=== PATIENT | male | born 1955 | race Caucasian/White ===

== ENCOUNTER 2018-09-01 09:10 | Emergency (ER) | payer BC ==
[2018-09-01] MEDS ORDERED: diphenhydrAMINE 50 MG/ML SDV IVPUSH ONE (09:15)
[2018-09-01] MEDS ORDERED: Dextrose 5%-0.9% NaCl 1,000 ML IV SCH (09:15)
[2018-09-01] MEDS ORDERED: Metoclopramide 10 MG/2 ML SDV IVPUSH ONE (09:15)
[2018-09-01] MEDS ORDERED: LORazepam 2 MG/ML SDV IVPUSH ONE (09:16)
--- NOTE | 2018-09-01 09:20 | EDM.PDOC ---
ED HPI GENERAL MEDICAL PROBLEM - General Chief Complaint: Neurological Problem Stated Complaint: [facility] Time Seen by Provider: 09/01/18 09:10 Source of Information: Reports: Patient, EMS History Limitations: Reports: No Limitations - History of Present Illness INITIAL COMMENTS - FREE TEXT/NARRATIVE: 62-year-old male presents the ED per [facility]. He states he awoke around 0600 hrs. this morning and appreciated marked vertigo symptoms upon getting up. He did get up during the night to void. He went to bed feeling fine. States he had a hang onto things to walk. He prefers to lie still with his eyes closed. Associated nausea without vomiting. The medics and given him Zofran 4 mg IV en route to [facility]. He admits that symptoms are improved if he holds still. They're worse with movement of his head particularly lying down or sitting up. He has had this once before about a year ago. No recent falls or closed head injuries. No headache at this time. Not on any blood thinners. No recent cough cold or flulike illness He states he has very bad tinnitus bilaterally. Appreciates that he is moving losing his hearing. He is not wearing hearing aids at this time afebrile. Heart rate is 68 and sinus. Onset: Today Onset Date: 09/01/18 Onset Time: 06:00 Duration: Hour(s): Location: Reports: Generalized (Severe vertigo with nausea) Quality: Reports: Other Severity: Severe (Severe vertigo 9 minute 10) Improves with: Reports: Rest (But still prefers to keep his eyes closed at rest. ) Context: Reports: Other (Spontaneous occurrence since awakening this morning at 0600 hrs.). Denies: Activity, Exercise, Lifting, Sick Contact, Trauma Associated Symptoms: Reports: Loss of Appetite, Nausea/Vomiting. 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 With severe tinnitus bilaterally.), Other (See Below) Social & Family History - Living Situation & Occupation Living situation: Reports: Occupation: Employed ED ROS GENERAL - Review of Systems Review Of Systems: See Below Constitutional: Denies: Fever, Chills, Weakness, Fatigue, Night Sweats, Diaphoresis, Decreased Appetite, Weight Loss HEENT: Reports: Glasses, Hearing Loss, Vertigo Respiratory: Reports: No Symptoms (1 bout about a year ago.) Cardiovascular: Reports: No Symptoms Endocrine: Reports: No Symptoms GI/Abdominal: Reports: Nausea (without vomiting) : Reports: Frequency Musculoskeletal: Reports: Joint Pain Skin: Reports: No Symptoms (Knees hips L-spine and neck at times) Neurological: Reports: Dizziness (At present severe vertigo with movement.) Psychiatric: Reports: No Symptoms Hematologic/Lymphatic: Reports: No Symptoms Immunologic: Reports: No Symptoms ED EXAM, DIZZINESS - Physical Exam Exam: See Below Exam Limited By: No Limitations General Appearance: Alert, WD/WN, Moderate Distress (Patient prefers to lie still at 60 elevation of the bed. Eyes close. However he can open his eyes to allow examination.) Eye Exam: Right Eye: Nystagmus (No sustained nystagmus), Bilateral Eye: Normal Inspection, PERRL Nystagmus: worsens with head to R, reproducible Ears: Normal External Exam, Normal Canal, Normal TMs Throat/Mouth: Normal Inspection, Normal Lips, Normal Teeth, Normal Gums, Normal Oropharynx, Normal Voice, No Airway Compromise, Other Head Exam: Atraumatic, Normocephalic. No: Facial Swelling Vertigo: worsens with head to R, reproducible, short duration Neck: Normal Inspection, Supple, Non-Tender, Full Range of Motion, Carotid Bruit. No: Lymphadenopathy (L), Lymphadenopathy (R) Respiratory/Chest: No Respiratory Distress, Lungs Clear, Normal Breath Sounds, No Accessory Muscle Use Cardiovascular: Normal Peripheral Pulses, Regular Rate, Rhythm, No Edema, No Gallop, No Murmur, No Rub GI/Abdominal: Normal Bowel Sounds, Soft, Non-Tender, No Organomegaly, No Abnormal Bruit, No Mass, Pelvis Stable, Other (No surgical scars ) Neurological: Alert, Normal Mood/Affect, Normal Dorsiflexion, CN II-XII Intact, Normal Plantar Flexion, Normal Reflexes, No Motor/Sensory Deficits, Oriented x 3 , Other (Normal heel to ozuna.). No: Normal Gait, Abnormal Finger to Nose, Abnormal Sensation, Abnormal Light Touch, Abnormal Motor, Abnormal Pin Prick, Babinski DTR: 0: Achilles (R), Achilles (L), 1+: Bicep (R), Bicep (L), Patella (R), Patella (L) Back Exam: Normal Inspection, Full Range of Motion. No: CVA Tenderness (L), CVA Tenderness (R) Extremities: Normal Inspection, Normal Range of Motion, Non-Tender, No Pedal Edema, Normal Capillary Refill Psychiatric: Normal Affect, Normal Mood Skin Exam: Warm, Dry, Intact, Normal Color, No Rash EKG INTERPRETATION EKG Date: 09/01/18 Time: 09:36 Rhythm: Other (Sinus bradycardia) Rate (Beats/Min): 52 Caliente: LAD-Left Caliente Deviation (Mild left axis deviation of -18) P-Wave: Enlarged (Left atrial hypertrophy pattern) QRS: Other (There is a near Q-wave in leads 3 and aVF. Consider possible old inferior wall myocardial infarction) ST-T: Other (T-wave flattening in lead 3 and aVF nonspecific finding) QT: Normal EKG Interpretation Comments: Abnormal ECG Course - Vital Signs Last Recorded V/S: Last Vital Signs Temp 36.4 C 09/01/18 09:12 Pulse 67 09/01/18 09:12 Resp 16 09/01/18 09:12 BP 161/87 H 09/01/18 09:12 Pulse Ox 100 09/01/18 09:12 - Orders/Labs/Meds Orders: Active Orders 24 hr Category Date Time Status EKG Documentation Completion [RC] STAT Care 09/01/18 09:16 Active URINALYSIS W/MICROSCOPIC [UA W/MICROSCOPIC] [URIN] Stat Lab 09/01/18 09:17 Ordered Dextrose 5%-0.9% NaCl [Dextrose 5%-Normal Saline] 1,000 Med 09/01/18 09:15 Active ml IV ASDIRECTED Medication Orders Dextrose/Sodium Chloride (Dextrose 5%-Normal Saline) 1,000 mls @ 150 mls/hr IV ASDIRECTED ELIEZER Last Admin: 09/01/18 09:25 Dose: 150 mls/hr Labs: Laboratory Tests 09/01/18 09/01/18 09/01/18 Range/Units 09:30 09:30 09:30 WBC 6.04 (4.23-9.07) K/mm3 RBC 5.62 (4.63-6.08) M/mm3 Hgb 16.9 (13.7-17.5) gm/L Hct 48.6 (40.1-51.0) % MCV 86.5 (79.0-92.2) fl MCH 30.1 (25.7-32.2) pg MCHC 34.8 (32.2-35.5) g/dl RDW Std Deviation 39.8 (35.1-43.9) fL Plt Count 197 (163-337) K/mm3 MPV 9.7 (9.4-12.3) fl Neutrophils % (Manual) 61 H (40-60) % Band Neutrophils % 0 (0-10) % Lymphocytes % (Manual) 28 (20-40) % Atypical Lymphs % 0 % Monocytes % (Manual) 9 (2-10) % Eosinophils % (Manual) 2 (0.8-7.0) % Basophils % (Manual) 0 L (0.2-1.2) Toxic Granulation 1+ slight Platelet Estimate Adequate RBC Morph Comment Normal Sodium 139 (136-145) mEq/L Potassium 4.2 (3.5-5.1) mEq/L Chloride 102 (98-107) mEq/L Carbon Dioxide 26 (21-32) mEq/L Anion Gap 15.2 H (5-15) BUN 13 (7-18) mg/dL Creatinine 0.9 (0.7-1.3) mg/dL Est Cr Clr Drug Dosing 82.33 mL/min Estimated GFR (MDRD) > 60 (>60) mL/min BUN/Creatinine Ratio 14.4 (14-18) Glucose 173 H (80-115) mg/dL Calcium 9.0 (8.5-10.1) mg/dL Magnesium 1.6 L (1.8-2.4) mg/dl Total Bilirubin 0.8 (0.2-1.0) mg/dL AST 18 (15-37) U/L ALT 29 (16-63) U/L Alkaline Phosphatase 67 (46-116) U/L C-Reactive Protein < 0.2 (<1.0) mg/dL Total Protein 7.8 (6.4-8.2) g/dl Albumin 4.5 (3.4-5.0) g/dl Globulin 3.3 gm/dL Albumin/Globulin Ratio 1.4 (1-2) TSH 3rd Generation 1.731 (0.358-3.74) uIU/mL Meds: Medications Generic Name Dose Route Start Last Admin Trade Name Freq PRN Reason Stop Dose Admin Dextrose/Sodium Chloride 1,000 mls @ 150 mls/hr 09/01/18 09:15 09/01/18 09:25 Dextrose 5%-Normal Saline IV 150 mls/hr ASDIRECTED ELIEZER Administration Discontinued Medications Generic Name Dose Route Start Last Admin Trade Name Freq PRN Reason Stop Dose Admin Diphenhydramine HCl 12.5 mg 09/01/18 09:15 09/01/18 09:27 Benadryl IVPUSH 09/01/18 09:16 12.5 mg ONETIME ONE Administration Lorazepam 0.5 mg 09/01/18 09:16 09/01/18 09:29 Ativan IVPUSH 09/01/18 09:17 0.5 mg ONETIME ONE Administration Metoclopramide HCl 10 mg 09/01/18 09:15 09/01/18 09:25 Reglan IVPUSH 09/01/18 09:16 10 mg ONETIME ONE Administration - Radiology Interpretation Free Text/Narrative:: 62-year-old male presents the ED per ambulance from [facility]. He awoke around 0600 hrs. this morning with severe vertigo which is improved at rest. He's had a similar bout about a year ago. He has decreased hearing bilaterally without need for hearing aids or use at this time. Has severe tinnitus bilaterally chronically. Can't appreciate if there is any worsening of his noise in his ears. No recent cough colds or flulike illnesses. No closed head injuries. CM reveals no sustained nystagmus until head is rotated to the right. The tympanic membranes are normal. Cranial nerves II-12 are intact. Motor power and tone are normal. No pronator drift. Normal finger to nose and heel to ozuna assessments. Negative Babinski. Appears to have peripheral benign positional vertigo. Paramedics have given him Zofran 4 mg IV en route to the hospital. I will give him Reglan 10 mg IV with Benadryl 12.5 mg IV to prevent any dystonic reaction from the Zofran and Reglan. He will also receive Ativan 0.5 mg IV. Routine labs will be obtained including serum magnesium and TSH. - Re-Assessments/Exams Free Text/Narrative Re-Assessment/Exam: 09/01/18 10:42 Labs reveal a normal white count at 6.04. 61% neutrophils and no band cells reported. Hemoglobin is slightly elevated at 16.9 with hematocrit of 48.6 suggesting a component of hemoconcentration. Platelet count is 197,000. Sodium 139 with a potassium of 4.2. Cord 102 bicarbonate 26. And a gap is 15.2. BUN is 13 with a creatinine of 0.9. GFR is greater than 60. Glucose is elevated at 173. Patient is a known type II diabetic .. Calcium is 9.0. Magnesium slightly low at 1.6. Liver function is normal C-reactive protein is less than 0.2. Total protein is 7.8 albumin fraction 4.5 TSH is 1.73. 09/01/18 10:55 he feels a little dopey from the medication. We did get him up for road testing and he did extremely well. Still feels slightly vertiginous . He is able to turn completely around without any severe vertigo symptoms. He will therefore be discharged home on Antivert 25 mg every 8 hours for the next 5 days to bring the vertigo attack under control. Departure - Departure Time of Disposition: 11:08 Disposition: Home, Self-Care 01 Condition: Fair Clinical Impression: Benign paroxysmal positional vertigo of left ear, Hypomagnesemia - Discharge Information *PRESCRIPTION DRUG MONITORING PROGRAM REVIEWED*: Not Applicable *COPY OF PRESCRIPTION DRUG MONITORING REPORT IN PATIENT JESSI: Not Applicable Prescriptions: Meclizine [Antivert] 25 mg PO DAILY #15 tab Instructions: Vertigo, [id number], Benign Positional Vertigo Referrals: PCP,None [Primary Care Provider] - Forms: ED Department Discharge Additional Instructions: Evaluation the emergency room this morning in regards to awakening with severe vertigo symptoms that made it impossible to walk without holding onto furniture and objects. Associated nausea without vomiting. Previous similar event about a year ago. He reports tinnitus in both ears for over the last year. This goes along with loss of hearing. The same nerve associate with hearing is associated with balance control. Neuro exam is completely normal with no signs of stroke. Treated with intravenous medications Reglan 10 mg and Benadryl 12.5 mg and Ativan 0.5 mg to bring the vertigo attack under control. Lab work revealed that you're mildly dehydrated. Should be improved with intravenous fluids given in the ED. Continue to take plenty of fluids today. The other abnormalities identified and lab work was a slightly low serum magnesium level at 1.6. Normal should be around 2.0. I have therefore written a prescription for a magnesium supplement called Slow-Mag leg which is to be taken once daily like a vitamin. It is important for heart health primarily. You're to take Antivert medication 25 mg every 8 hours for the next 5 days to bring current vertigo attack under control. First tablet would be due at 1500 hrs. or 3:00 today. Would be due about 11:00 tonight and 7:00 in the morning. Suggest follow-up with your personal care physician in 8 days time or sooner if condition worsens. Avoid high sodium foods as much as possible until he you are better. - My Orders Last 24 Hours: My Active Orders 09/01/18 09:15 Dextrose 5%-0.9% NaCl [Dextrose 5%-Normal Saline] 1,000 ml IV ASDIRECTED 09/01/18 09:16 EKG Documentation Completion [RC] STAT 09/01/18 09:17 URINALYSIS W/MICROSCOPIC [UA W/MICROSCOPIC] [URIN] Stat - Assessment/Plan Last 24 Hours: My Active Orders 09/01/18 09:15 Dextrose 5%-0.9% NaCl [Dextrose 5%-Normal Saline] 1,000 ml IV ASDIRECTED 09/01/18 09:16 EKG Documentation Completion [RC] STAT 09/01/18 09:17 URINALYSIS W/MICROSCOPIC [UA W/MICROSCOPIC] [URIN] Stat
== END 2018-09-01 11:30 | disposition home or self-care (01) ==
LOC: JD.ED 09:10
DX: H81.12 Benign paroxysmal vertigo, left ear (principal); E83.42 Hypomagnesemia; Z79.899 Other long term (current) drug therapy
CPT/HCPCS: 36415; 80053; 81001; 83735; 84443; 85007; 85027; 86140; 93005; 96361; 96374; 96375; 99284; J1200; J2060; J2765; J7042; 93010

== ENCOUNTER 2019-06-14 06:52 | Emergency (ER) | payer OTHER ==
[2019-06-14] MEDS ORDERED: LORazepam 2 MG/ML SDV IVPUSH ONE (07:23)
--- NOTE | 2019-06-14 07:28 | EDM.PDOC ---
ED HPI GENERAL MEDICAL PROBLEM - General Chief Complaint: Respiratory Problem Stated Complaint: [facility] Time Seen by Provider: 06/14/19 07:22 Source of Information: Reports: Patient, Family (spouse) History Limitations: Reports: No Limitations - History of Present Illness INITIAL COMMENTS - FREE TEXT/NARRATIVE: 63-year-old male presents to the ED with chief complaint of dyspnea. Patient states he has been ill with upper respiratory tract infection for the last week. He was seen through the clinic 3 days ago and started on combination of albuterol hand-held nebulizer and antibiotic Levaquin 500 mg once daily. He states he slept pretty well but after taking his albuterol neb this morning at about 0600 hrs. his heart started to race and he became acutely dyspneic. Feeling like he could not get his breath. He was also prescribed a course of prednisone 20 mg twice daily for 5 days. Of note he is a type II diabetic. Did not check his sugars this morning. He is still coughing paroxysmal . No fever or chills. Early O2 sats were found to be in the upper 70s at home however his hands were very cool to touch and therefore the pulse oximetry was felt to be inaccurate. Onset: Today, Sudden Onset Date: 06/14/19 Onset Time: 06:00 Duration: Hour(s): Location: Reports: Chest (Of your dyspnea and strong subjective sensation of inability to get a full deep breath. She with the development of an upper respiratory tract infection over the last 5 days with paroxysmal cough and low- grade fever.) Quality: Reports: Other Severity: Severe (Dyspnea) Improves with: Reports: Rest, Other (Improved with oxygen via nasal cannula at 6 L/min.) Worsens with: Reports: Rest, Movement. Denies: Immobilization Context: Reports: Other (Is in central chest painIncreased respiratory rate and dyspnea after using albuterol nebulizer this morning.). Denies: Activity, Exercise, Lifting, Sick Contact, Trauma Associated Symptoms: Reports: Chest Pain, Cough, cough w sputum, Fever/Chills, Loss of Appetite, Malaise, Shortness of Breath. Denies: Confusion, Diaphoresis , Headaches, Nausea/Vomiting, Rash, Seizure, Syncope, Weakness Treatments [employer]: Reports: Other (see below) - Related Data Allergies Allergy/AdvReac Type Severity Reaction Status Date / Time No Known Allergies Allergy Verified 06/14/19 08:07 Home Meds: Home Meds Albuterol Sulfate [Albuterol Sulfate Hfa] 2 inh INH DAILY 06/14/19 [History] Levofloxacin [Levaquin] 750 mg PO DAILY 06/14/19 [History] Lisinopril [Zestril] 10 mg PO DAILY 06/14/19 [History] Simvastatin 20 mg PO BEDTIME 06/14/19 [History] Past Medical History HEENT History: Reports: Hard of Hearing (Vertigo once in the past. With severe tinnitus bilaterally.), Other (See Below) Cardiovascular History: Reports: High Cholesterol, Hypertension Endocrine/Metabolic History: Reports: Diabetes, Type II Hematologic History: Reports: Other (See Below) (Previous history of DVT for no good reason in his left calf. About 3 years ago) Social & Family History - Caffeine Use Caffeine Use: Reports: None - Living Situation & Occupation Living situation: Reports: Occupation: Employed ED ROS GENERAL - Review of Systems Review Of Systems: See Below Constitutional: Reports: Fever, Malaise, Weakness, Fatigue, Decreased Appetite. Denies: Chills (3 days ago but nothing since.), Weight Loss HEENT: Reports: Glasses, Throat Pain. Denies: Ear Pain Respiratory: Reports: Shortness of Breath, Cough, Sputum. Denies: Pleuritic Chest Pain, Hemoptysis Cardiovascular: Reports: Blood Pressure Problem, Dyspnea on Exertion, Lightheadedness. Denies: No Symptoms, Chest Pain, Claudication, Edema, Orthopnea Endocrine: Reports: Fatigue GI/Abdominal: Reports: Decreased Appetite : Reports: No Symptoms Musculoskeletal: Reports: No Symptoms Skin: Reports: No Symptoms Neurological: Reports: No Symptoms Psychiatric: Reports: No Symptoms Hematologic/Lymphatic: Reports: No Symptoms Immunologic: Reports: No Symptoms ED EXAM, GENERAL - Physical Exam Exam: See Below Exam Limited By: No Limitations General Appearance: Alert, WD/WN, Moderate Distress, Severe Distress, Other ( Very tachypneic at rest.) Eye Exam: Bilateral Eye: Normal Inspection, PERRL Ears: Normal TMs Throat/Mouth: Normal Inspection, Normal Lips, Normal Teeth, Normal Oropharynx Head: Atraumatic, Normocephalic Neck: Normal Inspection, Supple, Non-Tender, Full Range of Motion. No: Carotid Bruit, Lymphadenopathy (L), Lymphadenopathy (R) Respiratory/Chest: No Accessory Muscle Use, Chest Non-Tender, Respiratory Distress (Tachypnea.), Rales (Rales both lower lung tena.), Wheezing. No: Rhonchi (Patient expiratory wheeze.), Stridor, Pleural Rub, Accessory Muscle Use , Retractions Cardiovascular: Normal Peripheral Pulses, Regular Rate, Rhythm, No Edema, No Gallop, No Murmur, No Rub Peripheral Pulses: 3+: Posterior Tibial (L), Posterior Tibial (R), Dorsalis Pedis (L), Dorsalis Pedis (R) GI/Abdominal: Normal Bowel Sounds, Soft, Non-Tender, No Organomegaly, No Abnormal Bruit, No Mass, Pelvis Stable Back Exam: Normal Inspection, Full Range of Motion. No: CVA Tenderness (L), CVA Tenderness (R) Extremities: Normal Inspection, Normal Range of Motion, No Pedal Edema Neurological: Alert, Oriented, CN II-XII Intact, Normal Cognition Psychiatric: Normal Affect, Normal Mood Skin Exam: Warm, Dry, Intact, Normal Color, No Rash EKG INTERPRETATION EKG Date: 06/14/19 Time: 07:31 Rhythm: Other (Sinus tachycardia) Rate (Beats/Min): 128 [place]: Normal P-Wave: Present QRS: Other (R wave transition particular noted in V2 consider right ventricular hypertrophy pattern versus septal hypertrophy pattern.) ST-T: Other (T wave flattening in aVF only nonspecific finding) QT: Prolonged (QTC is moderately prolonged) Course - Vital Signs Last Recorded V/S: Last Vital Signs Temp 36.6 C 06/14/19 10:30 Pulse 113 H 06/14/19 10:30 Resp 28 H 06/14/19 10:30 BP 100/71 06/14/19 10:30 Pulse Ox 98 06/14/19 10:30 - Orders/Labs/Meds Orders: Active Orders 24 hr Category Date Time Status EKG Documentation Completion [RC] STAT Care 06/14/19 07:24 Active Oxygen Therapy [RC] ASDIRECTED Care 06/14/19 07:25 Active Chest 1V Frontal [CR] Stat Exams 06/14/19 07:24 Taken Chest PE [Ang Chest] [CT] Stat Exams 06/14/19 08:07 Taken Head wo Cont [CT] Stat Exams 06/14/19 10:07 Taken ANTICARDIOLIPIN AB, IGM, QN [REF] Stat Lab 06/14/19 09:00 Ordered ANTITHROMBIN ANTIGEN [REF] Stat Lab 06/14/19 09:00 Ordered CORONAVIRUS (COVID-19) PCR [MREF] Stat Lab 06/14/19 08:10 Received CULTURE BLOOD [BC] Stat Lab 06/14/19 08:00 Received CULTURE BLOOD [BC] Stat Lab 06/14/19 08:12 Received LACTIC ACID [CHEM] Stat Lab 06/14/19 10:44 Ordered PROTEIN C-FUNCTIONAL [REF] Stat Lab 06/14/19 09:00 Ordered PROTEIN S-FUNCTIONAL [REF] Stat Lab 06/14/19 09:00 Ordered VON WILLEBRAND PROFILE [REF] Stat Lab 06/14/19 09:02 Ordered Sodium Chloride 0.9% [Normal Saline] 1,000 ml Med 06/14/19 07:30 Active IV ASDIRECTED Sodium Chloride 0.9% [Normal Saline] 1,000 ml Med 06/14/19 10:00 Active IV ASDIRECTED Sodium Chloride 0.9% [Normal Saline] 100 ml Med 06/14/19 08:45 Active IV ASDIRECTED Blood Culture x2 Reflex Set [OM.PC] Stat Oth 06/14/19 07:37 Ordered Isolation [COMM] Routine Oth 06/14/19 07:32 Ordered Medication Orders Sodium Chloride (Normal Saline) 1,000 mls @ 500 mls/hr IV ASDIRECTED ELIEZER Last Admin: 06/14/19 08:03 Dose: 500 mls/hr Sodium Chloride (Normal Saline) 100 mls @ 60 mls/hr IV ASDIRECTED ELIEZER Last Admin: 06/14/19 09:10 Dose: 60 mls/hr Sodium Chloride (Normal Saline) 1,000 mls @ 500 mls/hr IV ASDIRECTED ELIEZER Last Admin: 06/14/19 10:00 Dose: 500 mls/hr Labs: Laboratory Tests 06/14/19 06/14/19 06/14/19 Range/Units 07:05 07:05 07:05 WBC 12.38 H (4.23-9.07) K/mm3 RBC 5.39 (4.63-6.08) M/mm3 Hgb 16.0 (13.7-17.5) gm/dl Hct 47.4 (40.1-51.0) % MCV 87.9 (79.0-92.2) fl MCH 29.7 (25.7-32.2) pg MCHC 33.8 (32.2-35.5) g/dl RDW Std Deviation 40.4 (35.1-43.9) fL Plt Count 425 H D (163-337) K/mm3 MPV 9.8 (9.4-12.3) fl Neut % (Auto) 69.9 H (34.0-67.9) % Lymph % (Auto) 22.4 (21.8-53.1) % Cole % (Auto) 6.5 (5.3-12.2) % Eos % (Auto) 0.3 L (0.8-7.0) Baso % (Auto) 0.2 (0.1-1.2) % Neut # (Auto) 8.65 H (1.78-5.38) K/mm3 Lymph # (Auto) 2.77 (1.32-3.57) K/mm3 Cole # (Auto) 0.80 (0.30-0.82) K/mm3 Eos # (Auto) 0.04 (0.04-0.54) K/mm3 Baso # (Auto) 0.03 (0.01-0.08) K/mm3 Manual Slide Review Abnormal smear PT 12.7 H (9.7-12.0) SECONDS INR 1.18 APTT (22-31) SECONDS D-Dimer, Quantitative (0.19-0.50) mg/L Puncture Site ABG pH (7.35-7.45) ABG pCO2 (35.0-45.0) mmHg ABG pO2 (80.0-100.0) mmHg ABG HCO3 (22.0-26.0) meq/L ABG O2 Saturation (96.0-97.0) % ABG Base Excess (-2-2.0) Jonatan Test A-a Gradient mmHg O2 Delivery Device Oxygen Flow Rate FiO2 (21.00-100.00) % Sodium 138 (136-145) mEq/L Potassium 4.1 (3.5-5.1) mEq/L Chloride 97 L (98-107) mEq/L Carbon Dioxide 22 (21-32) mEq/L Anion Gap 23.1 H (5-15) BUN 15 (7-18) mg/dL Creatinine 1.3 (0.7-1.3) mg/dL Est Cr Clr Drug Dosing TNP Estimated GFR (MDRD) 56 (>60) mL/min BUN/Creatinine Ratio 11.5 L (14-18) Glucose 404 H (80-115) mg/dL Lactic Acid (0.4-2.0) mmol/L Calcium 10.1 (8.5-10.1) mg/dL Magnesium 2.0 (1.8-2.4) mg/dl Total Bilirubin 0.7 (0.2-1.0) mg/dL AST 32 (15-37) U/L ALT 50 (16-63) U/L Alkaline Phosphatase 89 (46-116) U/L Lactate Dehydrogenase (85-227) U/L Troponin I < 0.017 (0.00-0.056) ng/mL C-Reactive Protein 9.2 H* (<1.0) mg/dL NT-Pro-B Natriuret Pep (0-125) pg/mL Total Protein 8.9 H (6.4-8.2) g/dl Albumin 3.5 (3.4-5.0) g/dl Globulin 5.4 gm/dL Albumin/Globulin Ratio 0.7 L (1-2) 06/14/19 06/14/19 06/14/19 Range/Units 07:05 07:05 07:05 WBC (4.23-9.07) K/mm3 RBC (4.63-6.08) M/mm3 Hgb (13.7-17.5) gm/dl Hct (40.1-51.0) % MCV (79.0-92.2) fl MCH (25.7-32.2) pg MCHC (32.2-35.5) g/dl RDW Std Deviation (35.1-43.9) fL Plt Count (163-337) K/mm3 MPV (9.4-12.3) fl Neut % (Auto) (34.0-67.9) % Lymph % (Auto) (21.8-53.1) % Cole % (Auto) (5.3-12.2) % Eos % (Auto) (0.8-7.0) Baso % (Auto) (0.1-1.2) % Neut # (Auto) (1.78-5.38) K/mm3 Lymph # (Auto) (1.32-3.57) K/mm3 Cole # (Auto) (0.30-0.82) K/mm3 Eos # (Auto) (0.04-0.54) K/mm3 Baso # (Auto) (0.01-0.08) K/mm3 Manual Slide Review PT (9.7-12.0) SECONDS INR APTT (22-31) SECONDS D-Dimer, Quantitative 15.85 H (0.19-0.50) mg/L Puncture Site ABG pH (7.35-7.45) ABG pCO2 (35.0-45.0) mmHg ABG pO2 (80.0-100.0) mmHg ABG HCO3 (22.0-26.0) meq/L ABG O2 Saturation (96.0-97.0) % ABG Base Excess (-2-2.0) Jonatan Test A-a Gradient mmHg O2 Delivery Device Oxygen Flow Rate FiO2 (21.00-100.00) % Sodium (136-145) mEq/L Potassium (3.5-5.1) mEq/L Chloride (98-107) mEq/L Carbon Dioxide (21-32) mEq/L Anion Gap (5-15) BUN (7-18) mg/dL Creatinine (0.7-1.3) mg/dL Est Cr Clr Drug Dosing Estimated GFR (MDRD) (>60) mL/min BUN/Creatinine Ratio (14-18) Glucose (80-115) mg/dL Lactic Acid 2.5 H* (0.4-2.0) mmol/L Calcium (8.5-10.1) mg/dL Magnesium (1.8-2.4) mg/dl Total Bilirubin (0.2-1.0) mg/dL AST (15-37) U/L ALT (16-63) U/L Alkaline Phosphatase (46-116) U/L Lactate Dehydrogenase (85-227) U/L Troponin I (0.00-0.056) ng/mL C-Reactive Protein (<1.0) mg/dL NT-Pro-B Natriuret Pep 96 (0-125) pg/mL Total Protein (6.4-8.2) g/dl Albumin (3.4-5.0) g/dl Globulin gm/dL Albumin/Globulin Ratio (1-2) 06/14/19 06/14/19 06/14/19 Range/Units 07:05 07:05 07:42 WBC (4.23-9.07) K/mm3 RBC (4.63-6.08) M/mm3 Hgb (13.7-17.5) gm/dl Hct (40.1-51.0) % MCV (79.0-92.2) fl MCH (25.7-32.2) pg MCHC (32.2-35.5) g/dl RDW Std Deviation (35.1-43.9) fL Plt Count (163-337) K/mm3 MPV (9.4-12.3) fl Neut % (Auto) (34.0-67.9) % Lymph % (Auto) (21.8-53.1) % Cole % (Auto) (5.3-12.2) % Eos % (Auto) (0.8-7.0) Baso % (Auto) (0.1-1.2) % Neut # (Auto) (1.78-5.38) K/mm3 Lymph # (Auto) (1.32-3.57) K/mm3 Cole # (Auto) (0.30-0.82) K/mm3 Eos # (Auto) (0.04-0.54) K/mm3 Baso # (Auto) (0.01-0.08) K/mm3 Manual Slide Review PT (9.7-12.0) SECONDS INR APTT 32 H (22-31) SECONDS D-Dimer, Quantitative (0.19-0.50) mg/L Puncture Site Lt radial ABG pH 7.38 (7.35-7.45) ABG pCO2 29.9 L (35.0-45.0) mmHg ABG pO2 99.0 (80.0-100.0) mmHg ABG HCO3 17.4 L (22.0-26.0) meq/L ABG O2 Saturation 96.0 (96.0-97.0) % ABG Base Excess -6.0 L (-2-2.0) Jonatan Test Positive A-a Gradient 435 mmHg O2 Delivery Device Nonrebreather Oxygen Flow Rate 15.0 FiO2 80.00 (21.00-100.00) % Sodium (136-145) mEq/L Potassium (3.5-5.1) mEq/L Chloride (98-107) mEq/L Carbon Dioxide (21-32) mEq/L Anion Gap (5-15) BUN (7-18) mg/dL Creatinine (0.7-1.3) mg/dL Est Cr Clr Drug Dosing Estimated GFR (MDRD) (>60) mL/min BUN/Creatinine Ratio (14-18) Glucose (80-115) mg/dL Lactic Acid (0.4-2.0) mmol/L Calcium (8.5-10.1) mg/dL Magnesium (1.8-2.4) mg/dl Total Bilirubin (0.2-1.0) mg/dL AST (15-37) U/L ALT (16-63) U/L Alkaline Phosphatase (46-116) U/L Lactate Dehydrogenase 431 H (85-227) U/L Troponin I (0.00-0.056) ng/mL C-Reactive Protein (<1.0) mg/dL NT-Pro-B Natriuret Pep (0-125) pg/mL Total Protein (6.4-8.2) g/dl Albumin (3.4-5.0) g/dl Globulin gm/dL Albumin/Globulin Ratio (1-2) Meds: Medications Generic Name Dose Route Start Last Admin Trade Name Freq PRN Reason Stop Dose Admin Sodium Chloride 1,000 mls @ 500 mls/hr 06/14/19 07:30 06/14/19 08:03 Normal Saline IV 500 mls/hr ASDIRECTED ELIEZER Administration Sodium Chloride 100 mls @ 60 mls/hr 06/14/19 08:45 06/14/19 09:10 Normal Saline IV 60 mls/hr ASDIRECTED ELIEZER Administration Sodium Chloride 1,000 mls @ 500 mls/hr 06/14/19 10:00 06/14/19 10:00 Normal Saline IV 500 mls/hr ASDIRECTED ELIEZER Administration Discontinued Medications Generic Name Dose Route Start Last Admin Trade Name Freq PRN Reason Stop Dose Admin Alteplase, Recombinant Confirm 06/14/19 09:38 06/14/19 09:43 Activase Administered 06/14/19 09:39 Not Given Dose 100 mg .ROUTE .STK-MED ONE Alteplase, Recombinant 100 mg 06/14/19 09:40 06/14/19 09:54 Activase IVPUSH 06/14/19 09:41 100 mg ONETIME ONE Administration Iopamidol 100 ml 06/14/19 08:36 06/14/19 09:10 Isovue-370 (76%) IVPUSH 06/14/19 08:37 100 ml ONETIME ONE Administration Lorazepam 1 mg 06/14/19 07:23 06/14/19 08:03 Ativan IVPUSH 06/14/19 07:24 1 mg ONETIME ONE Administration Rivaroxaban 15 mg 06/14/19 08:59 06/14/19 10:11 Xarelto PO 06/14/19 09:00 Not Given ONETIME ONE Sodium Chloride 10 ml 06/14/19 08:36 06/14/19 09:10 Saline Flush FLUSH 06/14/19 08:37 10 ml ONETIME ONE Administration - Radiology Interpretation Free Text/Narrative:: 63-year-old male presents to the ED per [facility] due to acute shortness of breath with tachycardia. Heart rate is up in the 130s. This seemed to start after taking albuterol metered-dose inhaler dose 2 puffs at around 0600 hrs. this morning. He has been ill for about 5 days with upper respiratory tract infection harsh paroxysmal cough productive at times. Low- grade fever initially but not since. He was placed on a short course of prednisone, 5 to 10-day course of Levaquin 500 mg daily and a metered-dose inhaler of albuterol. I presentation he is in sinus tachycardia in the 136 areas. Very anxious. He does however have crackles in both basal lung of the lungs not known to have any congestive heart failure issues. Plan septic work- up will be completed. Repeat ECG repeat chest x-ray repeat influenza screen and I will screen him for cold bed 19 as well. He was to be getting worse instead of better. - Re-Assessments/Exams Free Text/Narrative Re-Assessment/Exam: 06/14/19 08:01 ABGs reveal a normal pH of 7.38. PCO2 of 29.9 PO2 of 99 O2 sats 96% this was on a nonrebreather at 15 L. Is delivering 80% oxygen. He was placed on 3 L/min at my orders but his sats fell to around 89--90%. O2 sats will be increased to 4 to 5 L per nasal cannula since he is not a retainer. He remains tachycardic at 139/min with a BP of 107/72. Therefore he may well have a pulmonary embolism. This report to me now that he was never changed to a cannula. He remains on a nonrebreather at 15 L/min. O2 sats are 97% we will proceed with CT pulmonary angiogram screen. 06/14/19 08:23 Hematology reveals a slightly elevated white count of 12.38. The differential shows 70% neutrophils. Hemoglobin is 16.0 with hematocrit of 47.4. 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 Sodium 138 with a potassium of 4.1 chloride 97 with a bicarb of 22. Anion gap is elevated at 23.1. BUN is 15 with a creatinine of 1.3. Glucose is 404 calcium is 10.1 magnesium is 2.0. Liver function is normal troponin I is less than 0.017. C- reactive protein is elevated at 9.2 BNP is 96 total protein is 8.9 albumin fraction is 3.5 06/14/19 08:56 D-dimer has returned markedly elevated at 15.85. PT is 12.7 with an INR of 1.18 PTT is 32. Kos is markedly elevated at 404 lactic acid elevated at 2.5 C-reactive protein elevated at 9.2 influenza screen was negative. 06/14/19 08:57 pulmonary angiogram reveals bilateral multiple pulmonary emboli. Evidence of significant right ventricular strain with deviation of the right septum into the ventricle suggesting severe strain. It is considered as near close to the saddle pulmonary embolism as there is. Patient will be started immediately on Xarelto 15mg po which should be given twice daily for the first 21 days and then converted to 20 mg once daily. After I had discussed starting him on Eliquis his blood pressures slipped down into the 80s 81/57. His IV normal saline was bolused upwards but he now becomes a candidate for thrombolytic therapy. I will speak with physicians in [facility]. He did speak with Dr. Gaffney from the department of interventional radiology and he agrees that he is a candidate for thrombectomy. Will proceed with thrombolytics giving him alteplase 100 mg IV over 2 hours. Plan will be to tentatively transport him per helicopter service. 06/14/19 10:14 blood pressure did seem to respond to 500 mill normal saline bolus and is currently 111/70. He is currently 15 to 20 minutes in to his alteplase IV infusion. He is to receive 50 mg/h x 2 hours. I have spoke with Dr. Gaffney and I believe Dr. Clements at [facility] in [place] and both excepted care of this patient. Dr. Gaffney is from the interventional radiology unit and the plan will be to have the patient sent to the emergency room and ideally taken directly to the [facility] for thrombectomy from the pulmonary arteries. We have identified that the helicopter cannot fly for a variety of reasons. Patient will therefore be transported by ground ambulance as this will be faster. 06/14/19 11:06 CT of the brain has been carried out with overlying contrast residual in the brain from pulmonary angiogram that was just carried out. The radiologist reports no acute intracranial hemorrhage. There is mild diffuse heterogeneity of the white matter attenuation consistent with chronic white matter ischemic change. Mild cerebral atrophy. Ventricles appear to be normal with no ventriculomegaly. Visualized sinuses unremarkable with no fluid levels. Visualized mastoid air cells are well aerated soft tissues are unremarkable vasculature filling defect in the basilar artery series 2 image 7 could represent thromboembolic disease versus artifact. He had the scan sent by PACS to [facility] in [place]. Departure - Departure Time of Disposition: 11:00 Disposition: DC/Tfer to Acute Hospital 02 Condition: Serious Clinical Impression: Pulmonary embolism with acute cor pulmonale Qualifiers: Pulmonary embolism type: saddle Chronicity: acute Qualified Code(s): I26.02 - Saddle embolus of pulmonary artery with acute cor pulmonale - Discharge Information *PRESCRIPTION DRUG MONITORING PROGRAM REVIEWED*: Not Applicable *COPY OF PRESCRIPTION DRUG MONITORING REPORT IN PATIENT JESSI: Not Applicable Instructions: Pulmonary Embolism Referrals: Oleg Jarquin MD [Primary Care Provider] - Forms: ED Department Discharge Additional Instructions: Patient will be transported to [facility] in [place] primarily under the care of interventional radiology to see if they can intervene and remove a good portion of the clot load from his pulmonary arteries bilaterally. Sepsis Event Note - Focused Exam Vital Signs: Vital Signs Temp Pulse Resp BP Pulse Ox 06/14/19 10:30 36.6 C 113 H 28 H 100/71 98 06/14/19 10:00 118 H 34 H 98/74 98 06/14/19 08:04 36.4 C 135 H 32 H 107/72 93 L Date Exam was Performed: 06/14/19 Time Exam was Performed: 11:06 - My Orders Last 24 Hours: My Active Orders 06/14/19 07:24 EKG Documentation Completion [RC] STAT Chest 1V Frontal [CR] Stat 06/14/19 07:25 Oxygen Therapy [RC] ASDIRECTED 06/14/19 07:30 Sodium Chloride 0.9% [Normal Saline] 1,000 ml IV ASDIRECTED 06/14/19 07:32 Isolation [COMM] Routine 06/14/19 07:37 Blood Culture x2 Reflex Set [OM.PC] Stat 06/14/19 08:00 CULTURE BLOOD [BC] Stat 06/14/19 08:07 Chest PE [Ang Chest] [CT] Stat 06/14/19 08:10 CORONAVIRUS (COVID-19) PCR [MREF] Stat 06/14/19 08:12 CULTURE BLOOD [BC] Stat 06/14/19 08:45 Sodium Chloride 0.9% [Normal Saline] 100 ml IV ASDIRECTED 06/14/19 09:00 ANTICARDIOLIPIN AB, IGM, QN [REF] Stat ANTITHROMBIN ANTIGEN [REF] Stat PROTEIN C-FUNCTIONAL [REF] Stat PROTEIN S-FUNCTIONAL [REF] Stat 06/14/19 09:02 VON WILLEBRAND PROFILE [REF] Stat 06/14/19 10:00 Sodium Chloride 0.9% [Normal Saline] 1,000 ml IV ASDIRECTED 06/14/19 10:07 Head wo Cont [CT] Stat 06/14/19 10:44 LACTIC ACID [CHEM] Stat - Assessment/Plan Last 24 Hours: My Active Orders 06/14/19 07:24 EKG Documentation Completion [RC] STAT Chest 1V Frontal [CR] Stat 06/14/19 07:25 Oxygen Therapy [RC] ASDIRECTED 06/14/19 07:30 Sodium Chloride 0.9% [Normal Saline] 1,000 ml IV ASDIRECTED 06/14/19 07:32 Isolation [COMM] Routine 06/14/19 07:37 Blood Culture x2 Reflex Set [OM.PC] Stat 06/14/19 08:00 CULTURE BLOOD [BC] Stat 06/14/19 08:07 Chest PE [Ang Chest] [CT] Stat 06/14/19 08:10 CORONAVIRUS (COVID-19) PCR [MREF] Stat 06/14/19 08:12 CULTURE BLOOD [BC] Stat 06/14/19 08:45 Sodium Chloride 0.9% [Normal Saline] 100 ml IV ASDIRECTED 06/14/19 09:00 ANTICARDIOLIPIN AB, IGM, QN [REF] Stat ANTITHROMBIN ANTIGEN [REF] Stat PROTEIN C-FUNCTIONAL [REF] Stat PROTEIN S-FUNCTIONAL [REF] Stat 06/14/19 09:02 VON WILLEBRAND PROFILE [REF] Stat 06/14/19 10:00 Sodium Chloride 0.9% [Normal Saline] 1,000 ml IV ASDIRECTED 06/14/19 10:07 Head wo Cont [CT] Stat 06/14/19 10:44 LACTIC ACID [CHEM] Stat
[2019-06-14] MEDS ORDERED: Sodium Chloride 0.9% 1,000 ML IV SCH ×2 (07:30→10:00)
[2019-06-14] MEDS ORDERED: Iopamidol 755 Mg/ML 100 ML Bottle IVPUSH ONE (08:36)
[2019-06-14] MEDS ORDERED: Sodium Chloride 0.9% 10 ML Syringe FLUSH ONE (08:36)
[2019-06-14] MEDS ORDERED: Sodium Chloride 0.9% 100 ML IV SCH (08:45)
[2019-06-14] MEDS ORDERED: Rivaroxaban 15 MG Tab PO ONE (08:59)
--- NOTE | 2019-06-16 07:42 | CR ---
Chest: Portable view of the chest was obtained. Comparison: No prior chest x-rays available. Heart size and mediastinum are normal. Lungs show no acute parenchymal change. Bony structures are grossly intact. Impression: 1. Nothing acute is appreciated on portable chest x-ray. Diagnostic code #1 This report was dictated in MDT
--- NOTE | 2019-06-16 07:43 | CT ---
Head CT Technique: Multiple axial sections through the brain were obtained. Intravenous contrast was not utilized. Comparison: No prior intracranial imaging is available. Findings: Ventricles along with basal cisterns and sulci over the convexities are within normal limits for the patient's age. Distal basilar artery shows a minimal low density area. No abnormal parenchymal densities are seen. No evidence of intracranial hemorrhage. No midline shift or mass-effect is seen. Bone window settings were reviewed. Visualized mastoid sinuses and paranasal sinuses show nothing acute. No acute calvarial abnormality is appreciated. Impression: 1. Low density within the distal basilar artery most likely artifact. MR angiogram study could be considered to completely exclude plaque. 2. No acute intracranial abnormality is identified. Diagnostic code #2 This report was dictated in MDT I agree with preliminary report from [facility], finalized on 06/14/19, 11:57 AM Central Time
--- NOTE | 2019-06-16 07:43 | CT ---
CT chest Technique: Multiple axial sections were obtained from above the lung apices inferiorly through the lung bases. Intravenous contrast was utilized. Study has been performed as a pulmonary angiogram protocol. Comparison: Prior chest x-ray performed earlier on the same day (8:16 AM). Findings: Filling defects compatible with thrombus are seen within the distal right and left main pulmonary arteries extending into the upper and lower lobe segmental pulmonary arteries. Additional subsegmental thrombus is seen within both lower lobe pulmonary arteries. Visualized upper abdominal structures shows nothing acute. Cyst is noted within the right kidney measuring 2.8 cm. No pericardial thickening is seen. Coronary artery calcification is noted. Atherosclerotic calcification is seen within the thoracic aorta. Thoracic aorta shows no aneurysm. Small mediastinal lymph nodes are seen which are believed to be within normal limits. Minimal bowing of the intraventricular septum is seen possibly due to early right heart strain. Bone window settings were reviewed. Mild scattered degenerative change within the spine. No acute osseous finding is seen. Impression: 1. Extensive pulmonary emboli as noted above. This is noted on both sides of the chest. Possible early right heart strain. 2. Other findings which are believed to be nonacute. Diagnostic code #5 This report was dictated in MDT I agree with preliminary report from [facility], finalized on 06/14/19, 10:18 AM Central Time
== END 2019-06-14 10:50 ==
LOC: JD.ED 06:52
DX: I26.02 Saddle embolus of pulmonary artery with acute cor pulmonale (principal); I10 Essential (primary) hypertension; E11.9 Type 2 diabetes mellitus without complications; E78.00 Pure hypercholesterolemia, unspecified; R00.0 Tachycardia, unspecified; Z79.899 Other long term (current) drug therapy
CPT/HCPCS: 36415; 36600; 70450; 71045; 71275; 80053; 82803; 83605; 83615; 83735; 83880; 84484; 85025; 85240; 85245; 85246; 85301; 85303; 85306; 85379; 85610; 85730; 86140; 86147; 87040; 87635; 87804; 93005; 96361; 96365; 96375; 99285; J2060; J2997; J7030; J7050; Q9967; 93010; U0001; U0002

== ENCOUNTER 2020-04-03 12:59 | Emergency (ER) | payer OTHER ==
--- NOTE | 2020-04-03 14:57 | EDM.PDOC ---
ED HPI GENERAL MEDICAL PROBLEM - General Chief Complaint: Lower Extremity Injury/Pain Stated Complaint: LT LEG PAIN HX OF DVT Time Seen by Provider: 04/03/20 13:16 Source of Information: Reports: Patient, RN Notes Reviewed History Limitations: Reports: No Limitations - History of Present Illness INITIAL COMMENTS - FREE TEXT/NARRATIVE: Patient is a 64-year-old male presenting to the emergency department with complaints of pain and intermittent cramping to the calf and Knee of the left lower extremity. Symptoms have been occurring for the last few days. Patient is concerned that he could possibly have a DVT as he does have a history of DVTs. He is currently on Xarelto and states since he was on this blood thinner, he has not had any blood clots. Denies any known injury to the area. Denies chest pain or shortness of breath. Left Middle Leg Pain Score (Numeric/FACES): 5 - Related Data Allergies Allergy/AdvReac Type Severity Reaction Status Date / Time No Known Allergies Allergy Verified 04/03/20 13:22 Home Meds: Home Meds Simvastatin 20 mg PO BEDTIME 06/14/19 [History] metFORMIN [Glucophage XR] 500 mg PO DAILY 06/14/19 [History] Dulaglutide [Trulicity] 1.5 mg SQ WE 04/03/20 [History] Glimepiride 4 mg PO DAILY 04/03/20 [History] Rivaroxaban [Xarelto] 15 mg PO DAILY 04/03/20 [History] lisinopriL [Lisinopril] 2.5 mg PO DAILY 04/03/20 [History] Past Medical History HEENT History: Reports: Hard of Hearing, Impaired Vision Other HEENT History: wears eyeglasses Cardiovascular History: Reports: High Cholesterol, Hypertension Respiratory History: Reports: Bronchitis, Recurrent, PE, Pneumonia, Recurrent Musculoskeletal History: Reports: Fracture Neurological History: Reports: Migraines Psychiatric History: Reports: Addiction Other Psychiatric History: tobacco Endocrine/Metabolic History: Reports: Diabetes, Type II Hematologic History: Reports: Other (See Below) Other Hematologic History: had clotting studies with no etiology. - Past Surgical History Musculoskeletal Surgical History: Reports: Other (See Below) Other Musculoskeletal Surgeries/Procedures:: ingrown toenails. Social & Family History - Tobacco Use Tobacco Use Status *Q: Former Tobacco User Years of Tobacco use: 12 Packs/Tins Daily: 1 Used Tobacco, but Quit: Yes Month/Year Tobacco Last Used: 03/1981 - Caffeine Use Caffeine Use: Reports: Coffee, Tea - Alcohol Use Days Per Week of Alcohol Use: 7 Number of Drinks Per Day: 2 Total Drinks Per Week: 14 - Recreational Drug Use Recreational Drug Use: No - Living Situation & Occupation Living situation: Reports: Occupation: Employed Review of Systems - Review of Systems Review Of Systems: See Below Constitutional: Reports: No Symptoms. Denies: Chills, Fever, Weakness Eyes: Reports: No Symptoms Ears: Reports: No Symptoms Nose: Reports: No Symptoms Mouth/Throat: Reports: No Symptoms Respiratory: Reports: No Symptoms Cardiovascular: Reports: No Symptoms GI/Abdominal: Reports: No Symptoms Genitourinary: Reports: No Symptoms Musculoskeletal: Reports: Other (Left calf and knee pain) ED EXAM, GENERAL - Physical Exam Exam: See Below Exam Limited By: No Limitations General Appearance: Alert, WD/WN, No Apparent Distress Respiratory/Chest: No Respiratory Distress, Lungs Clear, Normal Breath Sounds, No Accessory Muscle Use, Chest Non-Tender Cardiovascular: Normal Peripheral Pulses, Regular Rate, Rhythm, No Edema, No Gallop, No JVD, No Murmur, No Rub Extremities: Other (Mild tenderness to the left popliteal fossa and proximal left calf. No redness, warmth, or swelling.) Neurological: Alert, Oriented, CN II-XII Intact, Normal Cognition, Normal Gait, Normal Reflexes, No Motor/Sensory Deficits Psychiatric: Normal Affect, Normal Mood Skin Exam: Warm, Dry, Intact, Normal Color, No Rash Course - Vital Signs Last Recorded V/S: Last Vital Signs Temp 97.0 F 04/03/20 13:15 Pulse 78 04/03/20 13:15 Resp 16 04/03/20 13:15 BP 141/76 H 04/03/20 13:15 Pulse Ox 96 04/03/20 13:15 - Orders/Labs/Meds Labs: Laboratory Tests 04/03/20 04/03/20 04/03/20 Range/Units 14:29 14:29 14:29 WBC 6.22 (4.23-9.07) K/mm3 RBC 5.00 (4.63-6.08) M/mm3 Hgb 15.2 (13.7-17.5) gm/dl Hct 44.1 (40.1-51.0) % MCV 88.2 (79.0-92.2) fl MCH 30.4 (25.7-32.2) pg MCHC 34.5 (32.2-35.5) g/dl RDW Std Deviation 40.9 (35.1-43.9) fL Plt Count 203 D (163-337) K/mm3 MPV 9.4 (9.4-12.3) fl Neut % (Auto) 63.0 (34.0-67.9) % Lymph % (Auto) 25.9 (21.8-53.1) % Graham % (Auto) 8.7 (5.3-12.2) % Eos % (Auto) 1.8 (0.8-7.0) Baso % (Auto) 0.3 (0.1-1.2) % Neut # (Auto) 3.92 (1.78-5.38) K/mm3 Lymph # (Auto) 1.61 (1.32-3.57) K/mm3 Graham # (Auto) 0.54 (0.30-0.82) K/mm3 Eos # (Auto) 0.11 (0.04-0.54) K/mm3 Baso # (Auto) 0.02 (0.01-0.08) K/mm3 Sodium 142 (136-145) mEq/L Potassium 4.0 (3.5-5.1) mEq/L Chloride 103 (98-107) mEq/L Carbon Dioxide 27 (21-32) mEq/L Anion Gap 16.0 H (5-15) BUN 14 (7-18) mg/dL Creatinine 1.0 (0.7-1.3) mg/dL Est Cr Clr Drug Dosing 72.20 mL/min Estimated GFR (MDRD) > 60 (>60) mL/min BUN/Creatinine Ratio 14.0 (14-18) Glucose 193 H (80-115) mg/dL Calcium 9.1 (8.5-10.1) mg/dL Magnesium 1.8 (1.8-2.4) mg/dl Total Bilirubin 0.7 (0.2-1.0) mg/dL AST 15 (15-37) U/L ALT 30 (16-63) U/L Alkaline Phosphatase 56 (46-116) U/L Total Protein 7.2 (6.4-8.2) g/dl Albumin 3.8 (3.4-5.0) g/dl Globulin 3.4 gm/dL Albumin/Globulin Ratio 1.1 (1-2) - Re-Assessments/Exams Free Text/Narrative Re-Assessment/Exam: Patient is a 64-year-old male presenting to the emergency department with complaints of pain to his left knee, both anterior and posterior, and proximal left calf. This has been going on for last few days. He is concerned as he does have a history of DVTs. Patient is currently on Xarelto. He denies having any blood clots since being on this medication. Discussed that the likelihood of having a DVT while on blood thinners is quite low, however we will complete an ultrasound of the lower extremity to ensure that this is not the case. Have also ordered a CBC, CMP, and magnesium to assess electrolytes for possible cause of cramping. 04/03/20 15:36 Hematology was significant for glucose elevated at 193. Calcium, magnesium, potassium are normal. Venous Doppler ultrasound shows no DVT. We will discharge patient home. Discharge instructions as documented. Departure - Departure Time of Disposition: 15:37 Disposition: Home, Self-Care 01 Condition: Good Clinical Impression: Leg pain Qualifiers: Laterality: left Qualified Code(s): M79.605 - Pain in left leg - Discharge Information *PRESCRIPTION DRUG MONITORING PROGRAM REVIEWED*: No *COPY OF PRESCRIPTION DRUG MONITORING REPORT IN PATIENT JESSI: No Instructions: Acute Knee Pain, Adult, [id number] Referrals: Oleg Jarquin MD [Primary Care Provider] - Forms: ED Department Discharge Additional Instructions: You were seen in the emergency department today for evaluation with regards to a sore knee and calf. Ultrasounds were completed of your leg and showed no blood clots. Your blood work was overall normal with the exception of your blood glucose being elevated at 193. It is likely that you having musculoskeletal pain of the knee. Recommend Tylenol as needed. You may alternate ice and heat as needed. Return to ER for any new or worsening symptoms of concern. Sepsis Event Note (ED) - Evaluation Sepsis Screening Result: No Definite Risk - Focused Exam Vital Signs: Vital Signs Temp Pulse Resp BP Pulse Ox 04/03/20 13:15 97.0 F 78 16 141/76 H 96
--- NOTE | 2020-04-03 15:26 | US ---
Left lower extremity deep venous ultrasound: Duplex and color Doppler evaluation was obtained the left common femoral, proximal greater saphenous, superficial femoral, popliteal, posterior tibial and peroneal vein. Right common femoral vein was also evaluated. Findings: Normal phasic flow, augmentation and compression is seen. Impression: 1. No evidence of deep venous thrombosis within the left lower extremity or within the right common femoral vein. Diagnostic code #1
== END 2020-04-03 15:48 | disposition home or self-care (01) ==
LOC: JD.ED 12:59
DX: M25.562 Pain in left knee (principal); M79.662 Pain in left lower leg; E78.00 Pure hypercholesterolemia, unspecified; I10 Essential (primary) hypertension; Z79.01 Long term (current) use of anticoagulants; Z79.84 Long term (current) use of oral hypoglycemic drugs; Z79.899 Other long term (current) drug therapy; Z86.711 Personal history of pulmonary embolism; Z87.891 Personal history of nicotine dependence
CPT/HCPCS: 36415; 80053; 83735; 85025; 93971-26-LT; 93971-LT; 99283; 99284-25

== ENCOUNTER 2021-07-25 10:47 | Emergency (ER) | payer MEDICARE, BC ==
[2021-07-25] MEDS ORDERED: Sodium Chloride 0.9% 10 ML Syringe FLUSH PRN (11:20)
[2021-07-25 12:58] LABS: CORONAVIRUS COVID-19 NAA NEGATIVE (NEGATIVE)
== END 2021-07-25 13:50 | disposition home or self-care (01) ==
LOC: JD.ED 10:47
DX: R07.89 Other chest pain (principal); R06.02 Shortness of breath; E11.9 Type 2 diabetes mellitus without complications; E78.00 Pure hypercholesterolemia, unspecified; I10 Essential (primary) hypertension; Z79.84 Long term (current) use of oral hypoglycemic drugs; Z79.899 Other long term (current) drug therapy; Z79.01 Long term (current) use of anticoagulants; Z20.822 Contact with and (suspected) exposure to COVID-19
CPT/HCPCS: 0240U; 36415; 71046; 80053; 83735; 83880; 84443; 84484; 85025; 85379; 86140; 93005; 99285; J3490